=== PATIENT | female | born 1940 | race Caucasian/White ===

== ENCOUNTER 2024-10-01 12:08 | Emergency (ER) | payer MEDICARE, BC ==
[2024-10-01] MEDS: GLUCAGON 1 MG/ML VIAL IVP STA (12:57)
[2024-10-01] MEDS: METOCLOPRAMIDE 5 MG/ML 2 ML VIAL IVP STA (12:59)
--- NOTE | 2024-10-01 14:12 | P.CONS ---
History of Present Illness - Reason for Consult Consult date: 10/01/24 Food bolus Requesting physician: West Alexander - Chief Complaint Difficulty swallowing - History of Present Illness This a pleasant 84-year-old female who presented to the emergency department with complaints of difficulty with swallowing and keeping anything down including liquids after having half of orange piece this morning that he had some of the white coating on it from the rind. Patient has had similar episodes in the past where she would have difficulty getting a pill down but that it would eventually go down after drinking some hot coffee. She recently underwent upper endoscopy secondary to dysphagia on 09/24/2024 with findings of a Schatzki ring status post dilation and a small Zenker's diverticulum. Patient has been given glucagon, Valium and Reglan. States that she does have some improvement but still feels that if she is drinking once it goes down it is just kind of frothing. Patient appears in no distress. She denies any shortness of breath, chest pain, no difficulty speaking. Review of Systems REVIEW OF SYSTEMS: CARDIOPULMONARY: No chest pain or shortness of breath. Gastrointestinal: No abdominal pain. Dysphagia with feeling of food caught in esophagus. No nausea or vomiting. No hematemesis, coffee-ground emesis. No rectal bleeding, or melena. GENITOURINARY: No dysuria or hematuria. MUSCULOSKELETAL: Reports normal range of motion., Joint pain. SKIN: No rashes. No jaundice. ENDOCRINE: No chills, fevers. No excessive weight gain or loss. No polydipsia or polyuria. PSYCHIATRIC: Unremarkable. NEUROLOGY: No change in mental status. Denies dizziness, headache. ENT: Vision unremarkable. CONSTITUTIONAL: No recent weight loss. No fever, chills, night sweats. Past Medical History Past Medical History: Coronary Artery Disease (CAD), Hypertension, Thyroid Disorder History of Any Multi-Drug Resistant Organisms: None Reported Past Surgical History: No Surgical Hx Reported Past Psychological History: Anxiety Smoking Status: Never smoker Past Alcohol Use History: None Reported Past Drug Use History: None Reported Medications and Allergies Allergies Allergy/AdvReac Type Severity Reaction Status Date / Time No Known Allergies Allergy Verified 10/01/24 12:15 Physical Exam Vitals: Vital Signs Temp Pulse Resp BP Pulse Ox 10/01/24 12:12 98 F 78 20 186/85 98 Intake and Output 09/30/24 10/01/24 10/01/24 22:59 06:59 14:59 Other: Weight 69.853 kg General appearance: The patient is alert, oriented, appears in no acute distress. HET: Head is normocephalic and atraumatic. Conjunctiva pink. Sclera anicteric. Neck: Supple without lymphadenopathy. Trachea midline. Heart: Regular. Lungs: Equal expansion, normal respiratory effort. Abdomen: Soft, nontender, nondistended. Skin: No rashes. No jaundice. Extremities: Normal skin color and turgor. No pedal edema. Neurological: No focal deficits. Alert and oriented x3. Assessment and Plan (1) Dysphagia Narrative/Plan: 84-year-old female with history of dysphagia and recent upper endoscopy for evaluation with findings of Schatzki's ring status post dilation and sinkers diverticulum noted EGD on 09/24/2024. Patient has dysphagia in light and possible food obstruction secondary to that Zenker's diverticulum. Continue with symptomatic treatment including glucagon, Valium and Phenergan which has already been ordered and allow for another couple hours to see if symptoms improve. If no symptom improvement will need to proceed with upper endoscopy. This was discussed with ER attending Dr. Alexander Current Visit: Yes Status: Acute Code(s): R13.10 - DYSPHAGIA, UNSPECIFIED SNOMED Code(s): 17372382 (2) Zenkers diverticulum Current Visit: Yes Status: Acute Code(s): K22.5 - DIVERTICULUM OF ESOPHAGUS, ACQUIRED SNOMED Code(s): 683525630 (3) Schatzki's ring Current Visit: Yes Status: Acute Code(s): K22.2 - ESOPHAGEAL OBSTRUCTION SNOMED Code(s): 134901272 Plan: 1. Continue symptomatic and supportive care 2. Agree with glucagon, Phenergan and Valium as ordered 3. Patient may have sips of clear liquid fluid for trial 4. Recommend giving the patient another 2 to 3 hours to see if symptoms improve, if not ER attending instructed to notify us and patient will likely need upper endoscopy. Thank you for this consultation. Dr. Lissette Tong I agree with the dictator's note, documented as a scribe by Ana Goode.
--- NOTE | 2024-10-01 14:54 | ED ---
General Adult HPI - General Source: patient, RN notes reviewed Mode of arrival: ambulatory Limitations: no limitations <West Alexander - Last Filed: 10/01/24 14:52> <Jamel Esqueda - Last Filed: 10/01/24 18:04> - General Chief complaint: Recheck/Abnormal Lab/Rx Stated complaint: Foreign obj stuck in throat Time Seen by Provider: 10/01/24 12:20 - History of Present Illness Initial comments: 84-year-old female presents emergency department complaint of food stuck in her throat and EGD by Dr. Tong was found to have a small pocket in her throat and a lower stomach issue. Patient states that she was eating orange and she states the rind became stuck in her throat she states is a little better but still having some issues swallowing. Patient shortness of breath. (West Alexander) - Related Data Allergies Allergy/AdvReac Type Severity Reaction Status Date / Time No Known Allergies Allergy Verified 10/01/24 17:00 Review of Systems ROS Other: All systems not noted in ROS Statement are negative. <West Alexander - Last Filed: 10/01/24 14:52> ROS Other: All systems not noted in ROS Statement are negative. <Jamel Esqueda - Last Filed: 10/01/24 18:04> ROS Statement: Those systems with pertinent positive or pertinent negative responses have been documented in the HPI. Past Medical History Past Medical History: Coronary Artery Disease (CAD), Hypertension, Thyroid Disorder History of Any Multi-Drug Resistant Organisms: None Reported Past Surgical History: No Surgical Hx Reported Past Psychological History: Anxiety Smoking Status: Never smoker Past Alcohol Use History: None Reported Past Drug Use History: None Reported <West Alexander - Last Filed: 10/01/24 14:52> General Exam Limitations: no limitations General appearance: alert, in no apparent distress Head exam: Present: atraumatic, normocephalic, normal inspection Eye exam: Present: normal appearance, PERRL, EOMI. Absent: scleral icterus, conjunctival injection, periorbital swelling ENT exam: Present: normal exam, mucous membranes moist Neck exam: Present: normal inspection. Absent: tenderness, meningismus, lymphadenopathy Respiratory exam: Present: normal lung sounds bilaterally. Absent: respiratory distress, wheezes, rales, rhonchi, stridor Cardiovascular Exam: Present: regular rate, normal rhythm, normal heart sounds. Absent: systolic murmur, diastolic murmur, rubs, gallop, clicks <NolaWest tyler - Last Filed: 10/01/24 14:52> Course Vital Signs 10/01/24 12:12 Temperature 98 F Pulse Rate 78 Respiratory 20 Rate Blood Pressure 186/85 O2 Sat by Pulse 98 Oximetry Medical Decision Making <CatherineWest - Last Filed: 10/01/24 14:52> <Jamel Esqueda - Last Filed: 10/01/24 18:04> - Medical Decision Making Was pt. sent in by a medical professional or institution (, [facility], VIAL GAUGER, urgent care, hospital, or custodial...) When possible be specific @ -[No] Did you speak to anyone other than the patient for history (EMS, parent, family, police, friend...)? What history was obtained from this source @ -[No] Did you review nursing and triage notes (agree or disagree)? Why? @ -[I reviewed and agree with nursing and triage notes] Were old charts reviewed (outside hosp., previous admission, EMS record, old EKG, old radiological studies, urgent care reports/EKG's, custodial records)? Report findings @ -[No old charts were reviewed] Differential Diagnosis (chest pain, altered mental status, abdominal pain women, abdominal pain men, vaginal bleeding, weakness, fever, dyspnea, syncope, headache, dizziness, GI bleed, back pain, seizure, CVA, palpatations, mental health, musculoskeletal)? @ -Esophageal food bolus difficultly swallowing EKG interpreted by me (3pts min.). @None X-rays interpreted by me (1pt min.). @ -[None done] CT interpreted by me (1pt min.). @ -[None done] U/S interpreted by me (1pt. min.). @ -[None done] What testing was considered but not performed or refused? (CT, X-rays, U/S, labs)? Why? @ -[None] What meds were considered but not given or refused? Why? @ -[None] Did you discuss the management of the patient with other professionals (professionals i.e. , PA, VIAL GAUGER, lab, RT, psych nurse, social media project manager, lens and frames prescription clerk, teacher, correction officer reformatory, briefcase sewer)? Give summary @ -Dr. Carrasco did evaluate the patient in the emergency department and felt with recent EGD to observe for short period of time, hoping that we bolus would pass. Was smoking cessation discussed for >3mins.? @ -[No] Was critical care preformed (if so, how long)? @ -[No] Were there social determinants of health that impacted care today? How? (Homel essness, low income, unemployed, alcoholism, drug addiction, transportation, low edu. Level, literacy, decrease access to med. care, snf, rehab)? @ -[No] Was there de-escalation of care discussed even if they declined (Discuss DNR or withdrawal of care, Hospice)? DNR status @ -[No] What co-morbidities impacted this encounter? (DM, HTN, Smoking, COPD, CAD, Cancer, CVA, ARF, Chemo, Hep., AIDS, mental health diagnosis, sleep apnea, morbid obesity)? @ -[None] Was patient admitted / discharged? Hospital course, mention meds given and route, prescriptions, significant lab abnormalities, going to OR and other pertinent info. @ -Case signed out at shift change, Signed West Alexander PA-C (West Alexander) Patient reevaluated by myself, Dr. Esqueda. Patient is able to swallow however has some concern of possibly something still being stuck. Case was again discussed with Dr. Carrasco by myself who does feel comfortable with discharge patient. They can follow-up in the office tomorrow and this was relayed to patient and family. Patient is happy not to have scope done at this time. No dyspnea. Diagnosis: Esophageal foreign body Acuity: Acute Threat to gastrointestinal function (Jamel Esqueda) Disposition <West Alexander - Last Filed: 10/01/24 14:52> Is patient prescribed a controlled substance at d/c from ED?: No Time of Disposition: 18:04 <Jamel Esqueda - Last Filed: 10/01/24 18:04> Clinical Impression: Esophageal foreign body Disposition: HOME SELF-CARE Condition: Stable Instructions (If sedation given, give patient instructions): Esophageal Foreign Body (ED) Additional Instructions: Please do follow-up with your primary care physician in the next day or 2 for recheck. If symptoms continue please follow-up with Dr. Carrasco tomorrow. Otherwise follow-up as directed with Dr. Carrasco. Return for unable to swallow, difficulty breathing, chest pain, worsening symptoms or other concerns. Liquid diet for 24 hours Referrals: Shalom Campa Jr, DO [Primary Care Provider] - 1-2 days Ale Tong MD [STAFF PHYSICIAN] - 1-2 days
[2024-10-01 18:19] VITALS: BP 162/79; PULSE 76; RESP 18; TEMP 97.1
== END 2024-10-01 18:19 | disposition home or self-care (01) ==
LOC: EC 12:08
DX: T18.128A Food in esophagus causing other injury, initial encounter (principal); W44.F3XA Food entering into or through a natural orifice, initial encounter
CPT/HCPCS: 99284; 96374; 96375 ×2; J1610; J2765; J3360

== ENCOUNTER 2024-10-03 12:03 | Day surgery (SDC) | payer MEDICARE, BC ==
[2024-10-03] MEDS: IV FLUID CONTINUATION 1,000 ML IV ONE (12:57)
[2024-10-03 13:06] VITALS: TEMP 99.2
[2024-10-03] MEDS: LACTATED RINGERS 1,000 ML BAG IV STA (13:11)
[2024-10-03] MEDS ORDERED: LIDOCAINE 1% INJ 10MG/ML (20 ML MDV) ONE (13:50)
[2024-10-03] MEDS ORDERED: PROPOFOL 10 MG/ML 20 ML VIAL IV ONE (13:50)
--- NOTE | 2024-10-03 14:11 | P.PCN ---
Date of Procedure: 10/03/24 Procedure(s) Performed: BRIEF HISTORY: Patient is a 84-year-old, pleasant, white female scheduled for an upper endoscopy as a part of evaluation of acute food impaction. She came to the emergency room 2 days ago after eating a piece of orange and could not swallow any further. She was given some glucagon and her symptoms gradually improved and she was able to swallow some liquids and was discharged home. She followed up in the office yesterday morning complaining that she is not able to swallow anything solid and barely any liquids. She is not scheduled for an upper endoscopy to evaluate further. She had an upper endoscopy done 2 days ago as a part of evaluation of dysphagia and was diagnosed with Zenker's diverticulum and distal esophageal Schatzki's ring that was dilated. PROCEDURE PERFORMED: Esophagogastroduodenoscopy with foreign body removal. PREOPERATIVE DIAGNOSIS: Acute food impaction. IV sedation per anesthesia. PROCEDURE: After informed consent was obtained, the patient was brought into the endoscopy unit. IV sedation was administered by Anesthesia under continuous monitoring. Initially the Olympus GIF-140 video endoscope was inserted into the mouth. It was gradually advanced into the pyriform sinuses and there was a piece of foreign body lodged that was extending into the Zenker's diverticulum. At this time I initially tried to use a Ross net but was not successful to remove the foreign body. Subsequently I used a tripod forceps and gently grabbed food bolus and removed it without any difficulty. Following this I was able to pass the scope into the esophagus which was intubated without any difficulty. It was gradually advanced into the stomach and duodenum and carefully examined. The bulb and the second part of the duodenum appeared normal. The scope at this time was withdrawn to the stomach, adequately insufflated with air, and upon careful examination, mucosa of the antrum, body, cardia and the fundus appeared normal. The scope was then withdrawn into the esophagus. The GE junction was located at 39 cm from the incisors. The esophagus appeared normal. The proximal cervical esophagus was carefully examined and there was a 2 cm Zenker's diverticulum identified. There were no erosions or ulcerations seen and the patient tolerated the procedure well. IMPRESSION: 1. Food impaction in the Zenker's diverticulum s/p removal as described above. 2. Rest of the esophagus appeared normal. RECOMMENDATIONS: The findings of this examination were discussed with the patient as well as the family. She was advised to be on soft diet. Follow-up in the office in 2 weeks. If she continues to remain symptomatic we will refer her to [facility] for [facility]..
[2024-10-03 14:28] VITALS: BP 114/67; PULSE 62; RESP 16
== END 2024-10-03 15:01 ==
LOC: ORWHC2ENDO 12:03
PROVIDERS: ATTEND Internal Medicine Gastroenterology
DX: K22.5 Diverticulum of esophagus, acquired (principal); I25.10 Atherosclerotic heart disease of native coronary artery without angina pectoris; I48.91 Unspecified atrial fibrillation; I10 Essential (primary) hypertension; E07.9 Disorder of thyroid, unspecified; F41.9 Anxiety disorder, unspecified; Z79.01 Long term (current) use of anticoagulants; Z79.890 Hormone replacement therapy; Z79.899 Other long term (current) drug therapy
CPT/HCPCS: 43247; J2003; J2704